=== PATIENT | male | born 1995 | race American Indian/Alaskan Native ===

== ENCOUNTER 2019-03-29 00:26 | Emergency (ER) | payer SELFPAY ==
[2019-03-29] MEDS ORDERED: DILAUDID IV ONE (00:49)
--- NOTE | 2019-03-29 00:53 | Emergency Department Report ---
ED Upper Extremity Inj HPI - General Chief Complaint: Extremity Injury, Upper Stated Complaint: DISLOCATED SHOULDER Time Seen by Provider: 03/29/19 00:43 Source: patient, EMS Mode of arrival: Ambulatory Limitations: Physical Limitation - History of Present Illness Initial Comments: 24-year-old male presents to ED with right shoulder dislocation just prior to arrival. Patient states he fell onto his shoulder tonight while playing around. History of 3 prior right shoulder dislocations. MD Complaint: Injury to:: right, shoulder -: hour(s) (1) Improves With: immobilization Worsens With: movement of extremity Context: fall Associated Symptoms: denies other symptoms Treatments Prior to Arrival: splint - Related Data Previous Rx's Medication Instructions Recorded Last Taken Type HYDROcodone/APAP 5-325 [[place] 1 each PO Q6HR PRN #7 tablet 03/29/19 Unknown Rx 5/325] Allergies Allergy/AdvReac Type Severity Reaction Status Date / Time No Known Allergies Allergy Verified 03/29/19 01:24 ED Review of Systems ROS: Stated complaint: DISLOCATED SHOULDER Other details as noted in HPI Comment: All other systems reviewed and negative Musculoskeletal: as per HPI Neurological: denies: weakness, numbness ED Past Medical Hx - Past Medical History Previous Medical History?: Yes Additional medical history: right shoulder dislocation- closed reduction/no therapy - Surgical History Past Surgical History?: No - Social History Smoking Status: Current Some Day Smoker Substance Use Type: None - Medications Home Medications: Home Medications Medication Instructions Recorded Confirmed Last Taken Type HYDROcodone/APAP 5-325 [[place] 1 each PO Q6HR PRN #7 tablet 03/29/19 Unknown Rx 5/325] ED Physical Exam - General Limitations: Physical Limitation General appearance: alert, in no apparent distress - Head Head exam: Present: atraumatic, normocephalic - Eye Eye exam: Present: normal appearance - ENT ENT exam: Present: mucous membranes moist - Neck Neck exam: Present: normal inspection - Respiratory Respiratory exam: Present: normal lung sounds bilaterally. Absent: respiratory distress - Cardiovascular Cardiovascular Exam: Present: regular rate, normal rhythm - GI/Abdominal GI/Abdominal exam: Present: soft, normal bowel sounds. Absent: distended, tenderness - Extremities Exam Extremities exam: Present: other (deformity noted at right shoulder, decreased ROM) - Neurological Exam Neurological exam: Present: alert, oriented X3. Absent: motor sensory deficit - Psychiatric Psychiatric exam: Present: normal affect, normal mood - Skin Skin exam: Present: warm, dry, intact, normal color ED Course Vital Signs 03/29/19 03/29/19 03/29/19 00:43 00:59 01:25 Temperature 97.8 F Temperature [ Pre-Procedure] Pulse Rate 69 Pulse Rate [ Intra-Procedure ] Pulse Rate [ Post-Procedure] Pulse Rate [Pre -Procedure] Respiratory 18 16 16 Rate Respiratory Rate [Intra- Procedure] Respiratory Rate [Post- Procedure] Respiratory Rate [Pre- Procedure] Blood Pressure 112/78 Blood Pressure [Intra- Procedure] Blood Pressure 112/78 [Left] Blood Pressure [Post-Procedure ] Blood Pressure [Pre-Procedure] O2 Sat by Pulse 100 Oximetry O2 Sat by Pulse Oximetry [ Intra-Procedure ] O2 Sat by Pulse Oximetry [Post -Procedure] O2 Sat by Pulse Oximetry [Pre- Procedure] 03/29/19 03/29/19 03/29/19 01:45 02:01 02:30 Temperature Temperature [ 98.1 F Pre-Procedure] Pulse Rate 66 72 Pulse Rate [ 65 Intra-Procedure ] Pulse Rate [ 69 Post-Procedure] Pulse Rate [Pre 60 -Procedure] Respiratory 20 16 Rate Respiratory 14 Rate [Intra- Procedure] Respiratory 15 Rate [Post- Procedure] Respiratory 18 Rate [Pre- Procedure] Blood Pressure 114/64 119/79 Blood Pressure 111/64 [Intra- Procedure] Blood Pressure [Left] Blood Pressure 111/62 [Post-Procedure ] Blood Pressure 121/77 [Pre-Procedure] O2 Sat by Pulse 100 99 Oximetry O2 Sat by Pulse 100 Oximetry [ Intra-Procedure ] O2 Sat by Pulse 100 Oximetry [Post -Procedure] O2 Sat by Pulse 100 Oximetry [Pre- Procedure] 03/29/19 03/29/19 03/29/19 02:40 02:45 03:00 Temperature Temperature [ Pre-Procedure] Pulse Rate 68 65 Pulse Rate [ Intra-Procedure ] Pulse Rate [ Post-Procedure] Pulse Rate [Pre -Procedure] Respiratory 16 14 16 Rate Respiratory Rate [Intra- Procedure] Respiratory Rate [Post- Procedure] Respiratory Rate [Pre- Procedure] Blood Pressure 122/66 116/73 Blood Pressure [Intra- Procedure] Blood Pressure [Left] Blood Pressure [Post-Procedure ] Blood Pressure [Pre-Procedure] O2 Sat by Pulse 100 99 Oximetry O2 Sat by Pulse Oximetry [ Intra-Procedure ] O2 Sat by Pulse Oximetry [Post -Procedure] O2 Sat by Pulse Oximetry [Pre- Procedure] 03/29/19 03/29/19 03/29/19 03:15 03:20 03:36 Temperature Temperature [ Pre-Procedure] Pulse Rate 58 L Pulse Rate [ Intra-Procedure ] Pulse Rate [ Post-Procedure] Pulse Rate [Pre -Procedure] Respiratory 14 16 16 Rate Respiratory Rate [Intra- Procedure] Respiratory Rate [Post- Procedure] Respiratory Rate [Pre- Procedure] Blood Pressure 116/56 Blood Pressure [Intra- Procedure] Blood Pressure [Left] Blood Pressure [Post-Procedure ] Blood Pressure [Pre-Procedure] O2 Sat by Pulse 100 Oximetry O2 Sat by Pulse Oximetry [ Intra-Procedure ] O2 Sat by Pulse Oximetry [Post -Procedure] O2 Sat by Pulse Oximetry [Pre- Procedure] 03/29/19 03:38 Temperature Temperature [ Pre-Procedure] Pulse Rate 64 Pulse Rate [ Intra-Procedure ] Pulse Rate [ Post-Procedure] Pulse Rate [Pre -Procedure] Respiratory 16 Rate Respiratory Rate [Intra- Procedure] Respiratory Rate [Post- Procedure] Respiratory Rate [Pre- Procedure] Blood Pressure Blood Pressure [Intra- Procedure] Blood Pressure 116/66 [Left] Blood Pressure [Post-Procedure ] Blood Pressure [Pre-Procedure] O2 Sat by Pulse 100 Oximetry O2 Sat by Pulse Oximetry [ Intra-Procedure ] O2 Sat by Pulse Oximetry [Post -Procedure] O2 Sat by Pulse Oximetry [Pre- Procedure] - Orthopedic Joint Reduction Joint #1 Consent Obtained: written consent Time Out Performed: Yes Side: right Joint Reduction Location: shoulder Analgesia: moderate sedation Shoulder Technique Used (if applicable): external rotation Post-Reduction Neuro Exam: intact Post-Reduction Vascular Exam: intact Post Reduction X-Ray Obtained: Yes Post Reduction X-Ray Results: reduced Splint Applied: Yes Patient Tolerated Procedure: well, no complications ED Medical Decision Making - Radiology Data Radiology results: report reviewed, image reviewed - Differential Diagnosis dislocation, fracture, sprain Critical care attestation.: If time is entered above; I have spent that time in minutes in the direct care of this critically ill patient, excluding procedure time. ED Disposition Clinical Impression: Recurrent dislocation, right shoulder Disposition: DC-01 TO HOME OR SELFCARE Is pt being admited?: No Condition: Stable Instructions: Shoulder Dislocation (ED), Moderate Sedation (ED) Prescriptions: HYDROcodone/APAP 5-325 [[place] 5/325] 1 each PO Q6HR PRN #7 tablet PRN Reason: Pain Referrals: PETRA WAY MD [Staff Physician] - 3-5 Days Time of Disposition: 02:53
[2019-03-29] MEDS ORDERED: ZOFRAN IV ONE (01:20)
[2019-03-29] MEDS ORDERED: DIPRIVAN 10 MG/ML IV ONE ×2 (01:24→01:40)
[2019-03-29] MEDS ORDERED: NACL 0.9% 1000 ML 1,000 ML ONE (01:24)
[2019-03-29] MEDS ORDERED: ZOFRAN ONE (01:25)
--- NOTE | 2019-03-29 01:29 | XRay Report ---
RIGHT SHOULDER 3 VIEWS INDICATION: injury. COMPARISON: No relevant prior imaging study available. FINDINGS: There is anterior inferior dislocation of the right humeral head with respect to the glenoid. No acut e fracture is identified. IMPRESSION: 1. Anterior inferior right shoulder dislocation. Signer Name: Jesse Miller MD Signed: 03/29/2019 1:25 AM Workstation Name: [id number]
[2019-03-29] MEDS ORDERED: NACL 0.9% 1000 ML 1,000 ML IV ONE (01:42)
--- NOTE | 2019-03-29 02:03 | XRay Report ---
RIGHT SHOULDER 2 VIEWS 1:42 AM INDICATION: post-reduction. COMPARISON: Earlier the same day FINDINGS: Previously seen anterior right shoulder dislocation has been reduced. Hill-Sachs impaction fracture i s seen along the greater tuberosity. No glenoid fracture. IMPRESSION: 1. Satisfactory post reduction images. Signer Name: Jesse Miller MD Signed: 03/29/2019 1:58 AM Workstation Name: [id number]
[2019-03-29] MEDS ORDERED: NORCO 5/325 PO ONE (03:15)
[2019-03-29] MEDS ORDERED: NORCO 5/325 ONE (03:31)
[2019-03-29 03:39] VITALS: BP 116/66
== END 2019-03-29 03:38 | disposition home or self-care (01) ==
LOC: ED 00:26
DX: M24.411 Recurrent dislocation, right shoulder (principal); F17.200 Nicotine dependence, unspecified, uncomplicated; Z98.890 Other specified postprocedural states; W19.XXXA Unspecified fall, initial encounter; Y93.89 Activity, other specified; Y92.89 Other specified places as the place of occurrence of the external cause; Y99.8 Other external cause status
CPT/HCPCS: 23650; 73030; 96374; 96375; 99284; J1170; J2405; J2704; J7030

== ENCOUNTER 2019-04-17 13:49 | Emergency (ER) | payer SELFPAY ==
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
--- NOTE | 2019-04-17 16:03 | XRay Report ---
Right shoulder-3 views INDICATION: shoulder pain. Patient injured the shoulder 2 weeks ago and then again on Tuesday, gener alized right shoulder pain COMPARISON: Right shoulder series from 03/29/2019 IMPRESSION: Subacute Hill-Sachs fracture along the superolateral humeral head as was discussed on e previous radiograph with no new abnormality identified. Normal alignment. No significant degenerati ve change. Visualized lungs are clear. Signer Name: Rc Pham MD Signed: 04/17/2019 3:59 PM Workstation Name: [id number]
[2019-04-17 16:48] VITALS: BP 122/70
== END 2019-04-17 16:47 | disposition home or self-care (01) ==
LOC: ED 13:49
DX: S42.291D Other displaced fracture of upper end of right humerus, subsequent encounter for fracture with routine healing (principal); Y92.89 Other specified places as the place of occurrence of the external cause